=== PATIENT | male | born 1975 | race Caucasian/White ===

== ENCOUNTER → 2025-03-30 | Outpatient (CLI) | payer OTHER ==
[~2025-03-30] VITALS: Ht 172.7 cm; Wt 106.1 kg
[2025-03-30 09:30] VITALS: BP 127/82; O2SAT 95
[2025-03-30 10:00] VITALS: BP 111/73; O2SAT 95
[2025-03-30 10:15] VITALS: BP 108/68; O2SAT 96
[2025-03-30 10:30] VITALS: BP 104/68; O2SAT 96
== END | disposition home or self-care (01) ==
LOC: TOM 08:52
PROVIDERS: ATTEND Internal Medicine Hematology & Oncology
DX: R59.0 Localized enlarged lymph nodes (principal); C88.8 Other malignant immunoproliferative diseases